=== PATIENT | female | born 1990 | race Two or more races ===

== ENCOUNTER 2018-07-31 05:11 | Emergency (ER) | payer OTHER ==
[~2018-07-31] VITALS: Ht 157.5 cm; Wt 68.5 kg
[2018-07-31] MEDS ORDERED: PRENATAL + DHA1 EAC1 (05:30)
== END 2018-07-31 14:41 | disposition home or self-care (01) ==
LOC: ER 05:11
DX: O21.1 Hyperemesis gravidarum with metabolic disturbance (principal); K29.70 Gastritis, unspecified, without bleeding; R10.11 Right upper quadrant pain; O23.41 Unspecified infection of urinary tract in pregnancy, first trimester; Z34.01 Encounter for supervision of normal first pregnancy, first trimester

== ENCOUNTER 2018-12-15 16:31 | Inpatient (IN) | payer OTHER ==
[~2018-12-15] VITALS: Ht 157.5 cm; Wt 78.9 kg
[~2018-12-15 16:31] MED LIST: PRENATAL + DHA1 EAC1
== END 2018-12-19 14:03 | disposition home or self-care (01) | DRG 833 ==
LOC: OBS/DEL 16:31 → OB/GYN 12-16 16:03 → LDR 12-16 16:03 → OB/GYN 12-16 19:33
PROVIDERS: ADMIT Obstetrics & Gynecology
PROC: 4A1HXCZ Monitoring of Products of Conception, Cardiac Rate, External Approach (ICD-10-PCS; principal; 2018-12-16)
PROC: BW40ZZZ Ultrasonography of Abdomen (ICD-10-PCS; 2018-12-18)
DX: O26.893 Other specified pregnancy related conditions, third trimester (principal); K29.60 Other gastritis without bleeding; E86.0 Dehydration; Z34.83 Encounter for supervision of other normal pregnancy, third trimester; O99.613 Diseases of the digestive system complicating pregnancy, third trimester; K82.8 Other specified diseases of gallbladder
CPT/HCPCS: 240

== ENCOUNTER 2019-02-02 10:30 | Inpatient (IN) | payer OTHER ==
[~2019-02-02] VITALS: Ht 157.5 cm; Wt 80.7 kg
[2019-02-05] MEDS ORDERED: SENOKOT-S TABL1 EACH PO (12:36)
[2019-02-05] MEDS ORDERED: IBUPROFEN800 MG PO (12:36)
[2019-02-05] MEDS ORDERED: PREPLUS CA-FE1 EACH PO (12:36)
== END 2019-02-05 14:26 | disposition home or self-care (01) | DRG 807 ==
LOC: OBS/DEL 10:30 → LDR 16:54 → OBS/DEL 16:54 → OB/GYN 02-03 17:52
PROVIDERS: ADMIT Obstetrics & Gynecology
PROC: 10E0XZZ Delivery of Products of Conception, External Approach (ICD-10-PCS; principal; 2019-02-02)
PROC: 0UQGXZZ Repair Vagina, External Approach (ICD-10-PCS; 2019-02-02)
PROC: 3E0P7VZ Introduction of Hormone into Female Reproductive, Via Natural or Artificial Opening (ICD-10-PCS; 2019-02-02)
PROC: 3E033VJ Introduction of Other Hormone into Peripheral Vein, Percutaneous Approach (ICD-10-PCS; 2019-02-02)
PROC: 4A1HXCZ Monitoring of Products of Conception, Cardiac Rate, External Approach (ICD-10-PCS; 2019-02-02)
DX: O71.4 Obstetric high vaginal laceration alone (principal); Z37.0 Single live birth; Z3A.38 38 weeks gestation of pregnancy